=== PATIENT | male | born 1980 | race Two or more races ===

== ENCOUNTER 2016-07-11 02:35 | Emergency (ER) | payer OTHER ==
[~2016-07-11] VITALS: Ht 170.2 cm; Wt 90.7 kg
[2016-07-11] MEDS ORDERED: IV D5/ 0.9% NACL 1,000 ML IV ONE ×2 (03:06→03:15)
[2016-07-11] MEDS ORDERED: IV SET PRIMARY 1 EA INFUS.SET MC ONE (03:15)
[2016-07-11] MEDS ORDERED: DICYCLOMINE HCL INJ 20 MG/2 ML AMPUL IM ONE ×2 (03:15→03:30)
[2016-07-11] MEDS ORDERED: ONDANSETRON HCL/PF 4 MG/2 ML VIAL ONE (03:15)
[2016-07-11] MEDS ORDERED: ONDANSETRON HCL/PF - ER 4 MG/2 ML VIAL IV ONE (03:30)
[2016-07-11 03:57] LABS: CALCIUM, SERUM 8.2 mg/dL (8.5-10.1); CREATININE 0.9 mg/dL (0.6-1.3); POTASSIUM 3.5 mmol/L (3.5-5.1)
[2016-07-11] MEDS ORDERED: DICYCLOMINE HCL 10 MG CAPSULE PO ONE ×2 (03:57→04:00)
--- NOTE | 2016-07-11 04:40 | NUR ---
ASSUMED D/C CARE ONLY AT THIS TIME ON BEHALF OF PRIMARY NURSE KERLINE. Patient discharged to home in stable condition. Written and verbal after care instructions given. Patient verbalizes understanding of instruction. IV removed. Catheter intact and site benign. Pressure and 4x4 applied to site. No bleeding noted. Ambulatory with a steady gait
[2016-07-11 04:44] VITALS: BP 141/74
== END 2016-07-11 04:45 | disposition home or self-care (01) ==
LOC: ER 02:37
DX: R11.2 Nausea with vomiting, unspecified (principal); R19.7 Diarrhea, unspecified
CPT/HCPCS: 36415; 80048; 96361; 96374; 99284; A4606; J0500; J2405; J7042; Z7610